=== PATIENT | male | born 1965 | race Caucasian/White ===

== ENCOUNTER 2020-03-20 08:40 | Outpatient (CLI) | payer OTHER, SELFPAY ==
--- NOTE | ~2020-03-20 | US_ITS ---
EXAMINATION: US scrotum doppler DATE: 03/20/2020 09:50 INDICATION: Hydrocele TECHNIQUE: Testicular sonogram utilizing grayscale and Doppler COMPARISON: None. FINDINGS: The right testis measures 4.5 x 2.6 x 3.0 cm. The left testis measures 4.2 x 2.8 x 3.1 cm. There is normal vascular flow to both testes. The right epididymis is normal with normal vascular adalgisa w. The left epididymis is normal with normal vascular flow. Large bilateral hydroceles are present. IMPRESSION: 1. Large bilateral hydroceles, otherwise unremarkable testicular ultrasound. Reviewed, dictated and finalized at location A.
== END 2020-03-20 08:41 | disposition home or self-care (01) ==
PROVIDERS: PCP Internal Medicine; Visit Provider Internal Medicine
DX: N43.3 Hydrocele, unspecified (principal)
CPT/HCPCS: 76870; 93976

== ENCOUNTER 2020-04-13 00:30 | Outpatient (CLI) | payer OTHER, SELFPAY ==
[2020-04-13 18:54] LABS: SARS-CoV-2 RNA PCR Negative
== END 2020-04-13 00:31 | disposition home or self-care (01) ==
LOC: ANHCOVIDDT 00:35
PROVIDERS: PCP Internal Medicine; Visit Provider Urology
DX: Z01.812 Encounter for preprocedural laboratory examination (principal); Z20.828 Contact with and (suspected) exposure to other viral communicable diseases
CPT/HCPCS: 87635; C9803; U0003

== ENCOUNTER 2020-04-15 00:44 | Day surgery (SDC) | payer OTHER, SELFPAY ==
[2020-04-07 11:38] VITALS: BMI 25.8
[2020-04-15] VITALS (7 sets, daily range): BP systolic 127–133; BP diastolic 74–87; PULSE 75–102; RESP 14–20; TEMP 36.3; O2SAT 99–100; BMI 25.6
--- NOTE | 2020-04-15 06:58 | WPDHPUPDATE1 ---
History and Physical Update Update Date/Time: 04/15/20 06:58 History and Physical has been reviewed, including an updated exam of the patient. There are NO changes in the patient's condition. Risks, benefits, and alternatives have been discussed and questions answered. Patient agrees to proceed with procedure.
--- NOTE | 2020-04-15 08:04 | WPDANESEPPF ---
Anes - Initial Pre Proc Eval Procedure: Operation Date: 04/15/20 09:45 Proposed Procedures p Bilateral Hydrocelectomy - Wale Gr MD Date/Time: 04/15/20 08:04 Surgeon: Wale Gr MD Pre Op Diagnosis: bilateral hydrocele Patient Data Age: 54 Gender: M Height: 5 ft 10 in Weight: 81.65 kg Allergies Allergy/AdvReac Type Severity Reaction Status Date / Time No Known Allergies Allergy Verified 04/07/20 11:39 Home Medications Medication Instructions Recorded Confirmed Type No Home Medications 03/09/20 04/07/20 History Patient hx anesthesia problems: none Family hx anesthesia problems: none [facility] Social History Social History Smoking status: Never smoker Alcohol intake: current Drinks per week: 5 Spiritual care concerns: No Anes - Eval Final PreProcedure Day of Procedure 04/15/20 08:04 Patient weight: normal Heart: regular rate and rhythm Lungs: clear to auscultation Airway: Mallampati scale class II Neurological: alert and oriented Last oral intake: >/= 8 hours ASA classification: I Emergent: no Anesthetic plan: proceed Anesthesia type and monitoring: general LMA and standard monitoring Informed Consent: The patient's anesthetic plan and its attendant risks and benefits were discussed with the patient/family/POA. Questions were solicited and answers provided to the satisfaction of the patient/family/POA.
[2020-04-15] MEDS: LACTATED RINGERS 1,000 ML 30 ML IV CONT ×2 (08:17→09:57)
[2020-04-15] MEDS: ceFAZolin 2 GM/D5W 50 ML 2 GM/50 ML BAG IVPB (09:11)
[2020-04-15] MEDS: LIDO 1%/EPINEPHRINE 1:100,000 20 ML VIAL INFILTRATE (09:35)
--- NOTE | 2020-04-15 09:54 | PM.PROC ---
Procedure Note - Detailed Date of procedure: 04/15/20 Pre-op diagnosis: bilateral hydrocele Post-op diagnosis: same Procedure performed: Bilateral hydrocelectomy Description of procedure: The patient was brought to the operative suite where he was prepped and draped in routine sterile fashion while in a supine position after the uneventful induction of a general LMA anesthetic. An incision was made in the median raphe of the scrotum and dissection was carried first into the left tunica vaginalis. Clear, straw-colored fluid was drained. The testicle was examined and found to be both visibly and palpably normal. The tunica was everted in a bottle-neck fashion using a running 4-0 chromic. The testicle was restore returned to an orthotopic positioned. The smaller right hydrocele was drained in a similar fashion thru the same midline scrotal incision. The dartos muscle was closed with a running 4-0 chromic and the skin was likewise closed with a running 4-0 chromic. Estimated blood loss throughout this procedure was []cc . Patient tolerated the procedure well and was taken to the recovery room in good condition. Anesthesia: GLMA Surgeon: Wale Gr MD Estimated blood loss (mL): 10 Drains: No Packing: No Pathology: none sent Complications: No immediate complications Disposition: PACU
--- NOTE | 2020-04-15 11:24 | SUR.PHASEII ---
1115; PT AWAKE AND ALERT. STATES MILD PAIN AT 3/10. STATES HE IS READY TO GO HOME. MEETS DISCHARGE CRITERIA.
--- NOTE | 2020-04-15 11:26 | SUR.PHASEII ---
PT WALKED TO BATHROOM. GAIT STEADY.
--- NOTE | 2020-04-15 12:31 | SUR.PHASEII ---
1130; PT DRESSED. WAITING FOR RIDE.
== END 2020-04-15 11:45 | disposition home or self-care (01) ==
PROVIDERS: PCP Internal Medicine; Visit Provider Urology
PROC: (CPT 55040; principal; 2020-04-15 09:45)
DX: N43.3 Hydrocele, unspecified (principal)
CPT/HCPCS: 55060; J0690; J1100; J2250; J2405; J2704; J3010; J7120

== ENCOUNTER 2024-01-09 14:51 | Outpatient (CLI) | payer BC, SELFPAY ==
--- NOTE | ~2024-01-09 | XR_ITS ---
EXAMINATION: XR chest 2V DATE: 01/09/2024 15:31 INDICATION: Other chest pain. TECHNIQUE: Frontal and lateral views of the chest were obtained. COMPARISON: None. FINDINGS: There is no pneumonia, pleural effusion, or pneumothorax. The heart size is normal. IMPRESSION: 1. No acute cardiopulmonary disease. Reviewed, dictated and finalized at location E.
== END 2024-01-09 14:52 | disposition home or self-care (01) ==
LOC: ANHIMG 14:54
PROVIDERS: PCP Internal Medicine; Visit Provider Internal Medicine
DX: R07.89 Other chest pain (principal)
CPT/HCPCS: 71046